=== PATIENT | female | born 1985 | race Caucasian/White ===

== ENCOUNTER 2016-11-12 12:22 | Emergency (ER) | payer OTHER, BC ==
[2016-11-12 12:48] VITALS: BP 117/67; PULSE 60; TEMP 98.2
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
[2016-11-12] MEDS ORDERED: IBUPROFEN 600 MG TABLET (FP) PO ONE ×2 (13:37→13:44)
== END 2016-11-12 17:43 | disposition home or self-care (01) ==
LOC: JERFT 12:22
DX: S19.80XA Other specified injuries of unspecified part of neck, initial encounter (principal); S39.92XA Unspecified injury of lower back, initial encounter; V43.52XA Car driver injured in collision with other type car in traffic accident, initial encounter; Y92.414 Local residential or business street as the place of occurrence of the external cause; Y93.89 Activity, other specified; Y99.8 Other external cause status
CPT/HCPCS: 72050-TC; 72125-TC; 84703; 99281-25